=== PATIENT | male | born 1965 | race Caucasian/White ===

== ENCOUNTER 2022-01-16 22:10 | Inpatient (IN) ==
[2022-01-16 22:34] LABS: Basophils # (auto) 0.06 K/uL (0-0.2); Basophils % (auto) 0.5 %; Eosinophils # (auto) 0.19 K/uL (0-0.50); Eosinophils % (auto) 1.7 %; Hematocrit (blood only) 44.6 % (40.1-51.0); Hemoglobin 15.5 g/dl (14.0-18.0); Immature Granulocytes # (auto) 0.04 K/uL (0.00-0.02); Immature Granulocytes % (auto) 0.4 %; Lymphocytes # (auto) 2.82 K/uL (1.2-3.4); Lymphocytes % (auto) 25.8 %; Mean Corpuscular Hemoglobin 30.3 pg (25.0-34.0); Mean Corpuscular Hgb Conc 34.8 g/dL (32.0-36.0); Mean Corpuscular Volume 87.1 fL (80.0-100.0); Mean Platelet Volume 8.9 fL (9.4-12.4); Monocytes % (auto) 10.1 %; Neutrophils # (auto) 6.73 K/uL (1.4-6.5); Neutrophils % (auto) 61.5 %; Platelet Count 215 K/uL (130-400); RDW Coefficient of Variation 12.8 % (11.5-14.5); RDW Standard Deviation 40.3 fL (36.4-46.3); Red Blood Count 5.12 M/uL (4.63-6.08); White Blood Count 10.94 K/ul (4.8-10.8)
[2022-01-16 22:49] LABS: Partial Thromboplastin Ratio 1.1; Partial Thromboplastin Time 29.4 Seconds (21.0-31.0); Prothrombin Time 10.7 Seconds (9.0-12.0)
[2022-01-16 23:02] LABS: Troponin I High Sensitivity 39.4 pg/ml (0-20)
[2022-01-16] MEDS ORDERED: ASPIRIN CHEW 324 MG PO STA (23:12)
[2022-01-16 23:14] LABS: Albumin Globulin Ratio 1.4 (0.9-2); Albumin Level 4.4 gm/dl (3.4-5.0); Bilirubin,Total 0.7 mg/dl (0.2-1.0); Calcium 9.4 mg/dl (8.5-10.1); Creatinine Clr Calc Pharmacy 114.9 ml/min; Est GFR (Non-African American) 101.8 ml/min; Globulin 3.1 gm/dl (2.5-4.0); Total Protein 7.5 gm/dl (6.0-8.3)
--- NOTE | 2022-01-16 23:16 | Emergency Department Note ---
History of Present Illness General Chief complaint: Chest Pain Stated complaint: CHEST PAIN, HIGH BLOOD PRESSURE Time Seen by Provider: 01/16/22 22:44 History of Present Illness Maximum Pain Intensity: 0 56-year-old male presents emergency department with a 2-day history of intermittent chest pain. Patient states he was in [facility] at the airport he had to run to a in and he states that he developed substernal chest pressure that radiated down his left arm with associated shortness of breath. Patient states that subsequently resolved. Patient has a history of hypertension. Patient denies any cardiac history. Patient states today that his chest pain returned and radiated down his left arm. Patient denies any nausea vomiting diaphoresis neck pain jaw pain. There are no other mitigating or alleviating factors. Home Medications Medication Instructions Recorded Confirmed Type aspirin 81 mg tablet,delayed 81 mg PO DAILY 01/17/22 01/17/22 History release losartan 50 mg-hydrochlorothiazide 1 tab PO UD 01/17/22 01/17/22 History 12.5 mg tablet rosuvastatin 10 mg tablet 10 mg PO UD 01/17/22 01/17/22 History Allergies Allergy/AdvReac Type Severity Reaction Status Date / Time No Known Allergies Allergy Unknown Unverified 01/16/22 22:50 Past Med/Surg History Social History Smoking Status: Never smoker Feels Safe at Home: Yes Immunizations: Past medical history of hypertension Review of Systems A total of 10 systems reviewed and were otherwise negative Constitutional: no fever Cardiovascular: + chest pain Gastrointestinal: no abdominal pain Musculoskeletal: no back pain Physical Exam Vital Signs Vital Signs - 24 hr 01/16/22 22:11 01/16/22 23:10 01/16/22 23:30 Temperature 36.2 C L Temperature Source Temporal Artery Scan Pulse Rate 82 Pulse Rate [Right] 73 Respiratory Rate 16 18 Respiratory Effort / Characteristics Non-Labored Non-Labored Respiratory Depth Normal Normal Blood Pressure 177/77 H Blood Pressure [Right Arm] 155/73 H Blood Pressure Mean 110 Blood Pressure Mean [Right Arm] 100 Pulse Oximetry 95 94 94 Oxygen Delivery Method Room Air Room Air Room Air Sepsis Recent Fever Within 48 Hours No Sepsis New/Unexplained Change in Mental Status No Sepsis Action Taken by Nursing No Action Required VITAL SIGNS - Vital signs and nursing notes were reviewed. GENERAL - no acute distress. Communicates well with provider and answers questions appropriately. SKIN - Without rashes. HEAD - NC/AT. EYES - PERRL with EOMI bilaterally. Sclera anicteric. Palpebral conjunctiva pink and moist with no injection noted. EARS - No deformities of external structures noted on gross examination bilaterally. NOSE - Midline and without cyanosis. No epistaxis or purulent drainage noted. Septum midline without deviation or septal hematoma noted. MOUTH/OROPHARYNX - Without perioral cyanosis. Buccal mucosa pink and moist and without leukoplakia. Tongue midline with equal elevation of palate bilaterally. No tonsillar hypertrophy, erythema, or exudates noted. NECK - Neck with FROM. Supple to palpation. No lymphadenopathy noted. No nuchal rigidity. LUNGS - Chest wall symmetric without accessory muscle use, intercostals retractions, or central cyanosis. Normal vesicular breath sounds CTA B/L. No wheezes, rales, or rhonchi appreciated. CARDIAC - RRR with S1/S2. No murmur, rubs, or gallops appreciated. ABDOMEN - Abdominal contour soft without pulsations or visible masses. BS norm oactive all four quadrants. No tenderness, palpable masses, hepatosplenomegaly, or ascites noted. EXTREMITIES - No clubbing or peripheral cyanosis. No pretibial edema present. +5/5 strength noted in UE/LE bilaterally. NEUROLOGIC - Cranial nerves II through XII grossly intact. PSYCH - A&Ox3 and cooperates fully with examiner. Pt is very pleasant and interacts well with examiner. Course Reevaluation(s) Reevaluation #1: Patient is resting in no distress; there is no current chest pain. Patient was given aspirin. The case was discussed with the [facility] hospitalist for admission Time: 23:21 Administered Medications Discontinued Medications Aspirin (Aspirin Chew 324 Mg) 324 mg PO NOW STA Stop: 01/16/22 23:13 Last Admin: 01/16/22 23:25 Dose: 324 mg Documented By: BRENT Ioversol (Optiray 300 500ml) 120 ml IV ONCE ONE Stop: 01/17/22 01:26 Last Admin: 01/17/22 01:26 Dose: 120 ml Documented By: SHEILA Lisinopril (Lisinopril 5 Mg Tab) 2.5 mg PO ONE STA Stop: 01/16/22 23:31 Last Admin: 01/17/22 00:31 Dose: Not Given Documented By: BRENT Medical Decision Making Medical Records Attestation: I reviewed the patient's medical records. Home Medications Current Medication List: was personally reviewed by me Laboratory Data Attestation: I reviewed the patient's lab results. Result diagrams: 01/16/22 22:24 01/16/22 22:24 Lab Results 01/16/22 01/16/22 01/16/22 Range/Units 22:24 22:24 22:24 WBC 10.94 H (4.8-10.8) K/ul RBC 5.12 (4.63-6.08) M/uL Hgb 15.5 (14.0-18.0) g/dl Hct 44.6 (40.1-51.0) % MCV 87.1 (80.0-100.0) fL MCH 30.3 (25.0-34.0) pg MCHC 34.8 (32.0-36.0) g/dL RDW Std Deviation 40.3 (36.4-46.3) fL RDW Coeff of Nazia 12.8 (11.5-14.5) % Plt Count 215 (130-400) K/uL MPV 8.9 L (9.4-12.4) fL Immature Gran % (Auto) 0.4 % Neut % (Auto) 61.5 % Lymph % (Auto) 25.8 % [place] % (Auto) 10.1 % Eos % (Auto) 1.7 % Baso % (Auto) 0.5 % Neut # (Auto) 6.73 H (1.4-6.5) K/uL Lymph # (Auto) 2.82 (1.2-3.4) K/uL [place] # (Auto) 1.10 H (0.24-0.82) K/uL Eos # (Auto) 0.19 (0-0.50) K/uL Baso # (Auto) 0.06 (0-0.2) K/uL Immature Gran # (Auto) 0.04 H (0.00-0.02) K/uL PT 10.7 (9.0-12.0) Seconds INR 1.0 (0.9-1.1) APTT 29.4 (21.0-31.0) Seconds PTT Ratio 1.1 D-Dimer (0-500) ug/L FEU Sodium 138 (136-145) mmol/L Potassium 4.0 (3.5-5.1) mmol/L Chloride 106 (98-107) mmol/L Carbon Dioxide 23 (21-32) mmol/L Anion Gap 9 (3-11) BUN 21 (6-23) mg/dl Creatinine 0.75 (0.6-1.4) mg/dl Est Cr Clr Drug Dosing 114.9 ml/min Est GFR ( Amer) 118.0 ml/min Est GFR (Non-Af Amer) 101.8 ml/min BUN/Creatinine Ratio 28.0 H (10-20) Glucose 103 H (70-99(Fasting)) mg/dl Calcium 9.4 (8.5-10.1) mg/dl Total Bilirubin 0.7 (0.2-1.0) mg/dl AST 24 (13-39) U/L ALT 22 (7-52) U/L Alkaline Phosphatase 62 (34-104) U/L Troponin I High Sens 39.4 H (0-20) pg/ml Total Protein 7.5 (6.0-8.3) gm/dl Albumin 4.4 (3.4-5.0) gm/dl Globulin 3.1 (2.5-4.0) gm/dl Albumin/Globulin Ratio 1.4 (0.9-2) SARS-CoV-2, RNA, NAAT (NEGATIVE) 01/16/22 01/17/22 01/17/22 Range/Units 23:28 00:05 00:05 WBC (4.8-10.8) K/ul RBC (4.63-6.08) M/uL Hgb (14.0-18.0) g/dl Hct (40.1-51.0) % MCV (80.0-100.0) fL MCH (25.0-34.0) pg MCHC (32.0-36.0) g/dL RDW Std Deviation (36.4-46.3) fL RDW Coeff of Nazia (11.5-14.5) % Plt Count (130-400) K/uL MPV (9.4-12.4) fL Immature Gran % (Auto) % Neut % (Auto) % Lymph % (Auto) % [place] % (Auto) % Eos % (Auto) % Baso % (Auto) % Neut # (Auto) (1.4-6.5) K/uL Lymph # (Auto) (1.2-3.4) K/uL [place] # (Auto) (0.24-0.82) K/uL Eos # (Auto) (0-0.50) K/uL Baso # (Auto) (0-0.2) K/uL Immature Gran # (Auto) (0.00-0.02) K/uL PT (9.0-12.0) Seconds INR (0.9-1.1) APTT (21.0-31.0) Seconds PTT Ratio D-Dimer 1060 H* (0-500) ug/L FEU Sodium (136-145) mmol/L Potassium (3.5-5.1) mmol/L Chloride (98-107) mmol/L Carbon Dioxide (21-32) mmol/L Anion Gap (3-11) BUN (6-23) mg/dl Creatinine (0.6-1.4) mg/dl Est Cr Clr Drug Dosing ml/min Est GFR ( Amer) ml/min Est GFR (Non-Af Amer) ml/min BUN/Creatinine Ratio (10-20) Glucose (70-99(Fasting)) mg/dl Calcium (8.5-10.1) mg/dl Total Bilirubin (0.2-1.0) mg/dl AST (13-39) U/L ALT (7-52) U/L Alkaline Phosphatase (34-104) U/L Troponin I High Sens 40.1 H (0-20) pg/ml Total Protein (6.0-8.3) gm/dl Albumin (3.4-5.0) gm/dl Globulin (2.5-4.0) gm/dl Albumin/Globulin Ratio (0.9-2) SARS-CoV-2, RNA, NAAT NEGATIVE (NEGATIVE) Imaging Data Attestation: I personally reviewed and interpreted this imaging study as follows: Radiologist's Impression: Chest X-Ray 01/16/22 23:29 SINGLE VIEW CHEST CLINICAL HISTORY: Atypical chest pain. FINDINGS: 2 AP, portable, upright chest radiographs are obtained. No prior studies are available for comparison at the time of dictation. The heart is en larged. The pulmonary vasculature is noncongested. Nonspecific interstitial thickening is likely chronic. A calcified granuloma seen in the left upper lobe. There is bibasilar scarring/atelectasis. No airspace consolidation or large pleural effusion is identified. No pneumothorax is seen. The skeletal structures are osteopenic. The bony thorax is grossly intact. IMPRESSION: Cardiomegaly with no acute cardiopulmonary abnormality identified. ACT 112: Negative or not required by law. Electronically signed by: Valentino Deleon M.D. 01/17/2022 1:01 AM ECG Data Attestation: I personally reviewed and interpreted this ECG as follows: Additional Comments: EKG interpreted by me normal sinus rhythm rate of 74 left ventricular hyp ertrophy nonspecific ST-T change no obvious ST segment elevation or depression normal intervals normal axis MDM Narrative Medical decision making differential diagnosis includes angina unstable angina acute coronary syndrome acute RI musculoskeletal chest pain GERD. Plan is to check EKG labs chest x-ray give aspirin and admit. Impression & Plan Chest pain Discharge Plan Visit Data Chief Complaint: Chest Pain Stated Complaint: CHEST PAIN, HIGH BLOOD PRESSURE ED Provider: Gabe Neal Discharge Problem: Chest pain Patient Disposition: Being Evaluated by Hospitalist Forms Stand Alone Forms: [facility] Prescriptions Prescriptions: No Action aspirin [Aspirin Low-Strength] 81 mg Tablet,Delayed Release (Dr/Ec) 81 mg PO DAILY losartan-hydrochlorothiazide 50-12.5 mg Tablet 1 tab PO UD Rx Instructions: ordered daily....pt not taking rosuvastatin 10 mg Tablet 10 mg PO UD Rx Instructions: ordered daily...not taking Referrals Referrals: PCP,NO [Primary Care Provider] -
[2022-01-16] MEDS ORDERED: lisinopril 5 MG TAB PO STA (23:30)
[2022-01-17] MEDS ORDERED: LOSARTAN POTASSIUM 25 MG TAB PO STA ×2 (00:28→22:33)
--- NOTE | 2022-01-17 00:42 | History & Physical Report ---
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 medication noncompliance OBS PCU Resume prior low home losartan Rx and titrate accordingly Aspirin for CAD/CVA prevention Resume prior home statin Rx, update lipid profile Follow troponin IV heparin TTE, Cardiology consult Re: NSTEMI outpatient follow-up surveillance imaging for aortic enlargement and CT surgery consultation DVT prophylaxis IV heparin Full code Text document was generated using [employer] voice recognition software. It may contain grammatical or spelling errors. Kindly contact undersigned for clarification of any documentation item in q uestion. History of Present Illness Chief Complaint: Chest pain Primary Care Provider: Dr. Bright History obtained from patient and records. Medical history significant HTN, hyperlipidemia, valvular heart, DM, MS, lymphoma (bicuspid aortic valve, moderate to severe aortic insufficiency, mild MR), ascending thoracic aorta enlargement), history CVA, medication noncompliance. 3 days ago, patient noted pleuritic left-sided chest pain going to the left arm while trying to catch a plane at the [place] airport. Chest pain resolved on its own relaxation. At home last night, patient had recurrence of left-sided chest pressure with radiation to the left arm. No shortness of breath. SBP noted to be 180s at home. Patient admits to stopping home medications (ASA, Crestor, Hyzaar) a few years ago because he lost weight and felt that he did not need them anymore. Aspirin given at the ER. Patient currently comfortable. 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 Allergies Allergy/AdvReac Type Severity Reaction Status Date / Time No Known Allergies Allergy Unknown Unverified 01/16/22 22:50 Home Medications Medication Instructions Recorded Confirmed Type aspirin 81 mg tablet,delayed 81 mg PO DAILY 01/17/22 01/17/22 History release losartan 50 mg-hydrochlorothiazide 1 tab PO UD 01/17/22 01/17/22 History 12.5 mg tablet rosuvastatin 10 mg tablet 10 mg PO UD 01/17/22 01/17/22 History Past Med/Surg History Social History Smoking Status: Never smoker Second Hand Exposure: No; Do You Dip or Chew Tobacco: No; Tobacco Cessation Education Requested by Patient: No Hx Alcohol Use: No Hx Substance Use: No Preferred Language: Qatari Communication Ability: Effective Supervisor [employer] Required: No Beliefs That Will Affect Care: None Current Living Situation: Spouse Other Information That Helps Us Care for You: No Feels Safe at Home: Yes Safety Concerns: Feels Safe At This Time Assistive Devices: Glasses Review of Systems Review of Systems: As per HPI, all other systems reviewed and negative Physical Exam Physical Exam: GENERAL: Comfortable, pleasant, no respiratory distress SKIN: Normal color, warm HEENT: [place] palpebral conjunctivae, no ptosis, moist buccal mucosa NECK : Supple, no tenderness CHEST : CTA, no tenderness HEART : RRR, systolic murmur ABDOMEN: Some distention, nontender EXTREMITIES : No LE swelling/tenderness, no other conspicuous deformities noted NEUROLOGIC : Coherent, no facial asymmetry, no other gross focality Results & Data Results & Data ([facility]) Vital Signs (Past 12 Hours) Vital Signs Temp Pulse Pulse Resp BP BP Pulse Ox 01/16/22 23:30 73 18 155/73 H 94 01/16/22 23:10 94 01/16/22 22:11 36.2 C L 82 16 177/77 H 95 O2 Del Method 01/16/22 23:30 Room Air 01/16/22 23:10 Room Air 01/16/22 22:11 Room Air Laboratory Results Laboratory Results WBC 10.94 K/ul (4.8-10.8) H 01/16/22 22:24 RBC 5.12 M/uL (4.63-6.08) 01/16/22 22:24 Hgb 15.5 g/dl (14.0-18.0) 01/16/22 22:24 Hct 44.6 % (40.1-51.0) 01/16/22 22:24 MCV 87.1 fL (80.0-100.0) 01/16/22 22:24 MCH 30.3 pg (25.0-34.0) 01/16/22 22: MCHC 34.8 g/dL (32.0-36.0) 01/16/22: RDW Std Deviation 40.3 fL (36.4-46.3) 01/16/22: RDW Coeff of Nazia 12.8 % (11.5-14.5) 01/16/22 22:24 Plt Count 215 K/uL (130-400) 01/16/22 22: MPV 8.9 fL (9.4-12.4) L 01/16/22 22: Immature Gran % (Auto) 0.4 % 01/16/22 22: Neut % (Auto) 61.5 % 01/16/22: Lymph % (Auto) 25.8 % 01/16/22 22: [place] % (Auto) 10.1 % 01/16/22 22: Eos % (Auto) 1.7 % 01/16/22: Baso % (Auto) 0.5 % 01/16/22: Neut # (Auto) 6.73 K/uL (1.4-6.5) H 01/16/22 22:24 Lymph # (Auto) 2.82 K/uL (1.2-3.4) 01/16/22 22:24 [place] # (Auto) 1.10 K/uL (0.24-0.82) H 01/16/22 22:24 Eos # (Auto) 0.19 K/uL (0-0.50) 01/16/22 22:24 Baso # (Auto) 0.06 K/uL (0-0.2) 01/16/22 22: Immature Gran # (Auto) 0.04 K/uL (0.00-0.02) H 01/16/22 22:24 PT 10.7 Seconds (9.0-12.0) 01/16/22 22: INR 1.0 (0.9-1.1) 01/16/22 22:24 APTT 29.4 Seconds (21.0-31.0) 01/16/22 22:24 PTT Ratio 1.1 01/16/22 22:24 Sodium 138 mmol/L (136-145) 08/27/22 22:24 Potassium 4.0 mmol/L (3.5-5.1) 01/16/22 22:24 Chloride 106 mmol/L (98-107) 01/16/22 22:24 Carbon Dioxide 23 mmol/L (21-32) 01/16/22 22:24 Anion Gap 9 (3-11) 01/16/22 22:24 BUN 21 mg/dl (6-23) 01/16/22 22:24 Creatinine 0.75 mg/dl (0.6-1.4) 01/16/22 22:24 Est Cr Clr Drug Dosing 114.9 ml/min 01/16/22 22:24 Est GFR ( Amer) 118.0 ml/min 01/16/22 22:24 Est GFR (Non-Af Amer) 101.8 ml/min 01/16/22 22:24 BUN/Creatinine Ratio 28.0 (10-20) H 01/16/22 22:24 Glucose 103 mg/dl (70-99(Fasting)) H 01/16/22 22:24 Calcium 9.4 mg/dl (8.5-10.1) 01/16/22 22:24 Total Bilirubin 0.7 mg/dl (0.2-1.0) 01/16/22 22:24 AST 24 U/L (13-39) 01/16/22 22:24 ALT 22 U/L (7-52) 01/16/22 22:24 Alkaline Phosphatase 62 U/L (34-104) 01/16/22 22:24 Troponin I High Sens 39.4 pg/ml (0-20) H 01/16/22 22:24 Total Protein 7.5 gm/dl (6.0-8.3) 01/16/22 22:24 Albumin 4.4 gm/dl (3.4-5.0) 01/16/22 22:24 Globulin 3.1 gm/dl (2.5-4.0) 01/16/22 22:24 Albumin/Globulin Ratio 1.4 (0.9-2) 01/16/22 22:24 SARS-CoV-2, RNA, NAAT NEGATIVE (NEGATIVE) 01/16/22 23:[address] chest initial read: No pulmonaryembolus. No aortic aneurysm. Mild interseptal thickening mayrepresent atelectasis and/or pulmonaryedema. No consolidation. There is ectasia of the ascending aorta measuring 4.5 cm. The heart size iswithin normal limits. No pathologicallyenlarged lymph nodes. No fracture. EKG as per my interpretation : Rate 75, NSR, LAD, LAFB, LVH, ischemia
[2022-01-17 00:49] LABS: D Dimer 1060 ug/L FEU (0-500)
[2022-01-17] MEDS ORDERED: LORazepam 0.5 MG TAB PO PRN (00:54)
[2022-01-17] MEDS ORDERED: MoRPHine SULFATE 4 MG/ML 1 ML CARP\\VIAL IV PRN (00:54)
[2022-01-17] MEDS ORDERED: PROMETHAZINE HCL 12.5 MG in SODIUM CHLORIDE 0.9% 50 ML IV PRN (00:54)
[2022-01-17] MEDS ORDERED: traMADol HCL 50 MG TABLET PO PRN (00:54)
--- NOTE | 2022-01-17 01:02 | XRay Report ---
SINGLE VIEW CHEST CLINICAL HISTORY: Atypical chest pain. FINDINGS: 2 AP, portable, upright chest radiographs are obtained. No prior studies are available for comparison at the time of dictation. The heart is enlarged. The pulmonary vasculature is noncongested . Nonspecific interstitial thickening is likely chronic. A calcified granuloma seen in the left upper lobe. There is bibasilar scarring/atelectasis. No airspace consolidation or large pleural effusion i s identified. No pneumothorax is seen. The skeletal structures are osteopenic. The bony thorax is ava ssly intact. IMPRESSION: Cardiomegaly with no acute cardiopulmonary abnormality identified. ACT 112: Negative or not required by law. Electronically signed by: Valentino Deleon M.D. 01/17/2022 1:01 AM
[2022-01-17] MEDS ORDERED: SODIUM CHLORIDE 0.9% 1000ML 1,000 ML IV STA (01:12)
[2022-01-17] MEDS ORDERED: OPTIRAY 300 500mL IV ONE (01:25)
[2022-01-17] MEDS ORDERED: NITROGLYCERIN SL 0.4 MG/TAB TAB SL PRN (02:12)
[2022-01-17] MEDS ORDERED: Heparin IV Adult Wt-Based Standard *NO* Bolus Protocol IV ONE (03:25)
[2022-01-17] MEDS: HEPARIN SODIUM/DEXTROSE 25,000 UNITS/500 ML BAG IV SCH ×2 (04:47→23:35)
[2022-01-17 06:07] LABS: Basophils # (auto) 0.02 K/uL (0-0.2); Basophils % (auto) 0.3 %; Eosinophils # (auto) 0.26 K/uL (0-0.50); Eosinophils % (auto) 3.5 %; Hematocrit (blood only) 42.8 % (40.1-51.0); Hemoglobin 14.8 g/dl (14.0-18.0); Immature Granulocytes # (auto) 0.03 K/uL (0.00-0.02); Immature Granulocytes % (auto) 0.4 %; Lymphocytes # (auto) 2.63 K/uL (1.2-3.4); Lymphocytes % (auto) 35.8 %; Mean Corpuscular Hemoglobin 30.3 pg (25.0-34.0); Mean Corpuscular Hgb Conc 34.6 g/dL (32.0-36.0); Mean Corpuscular Volume 87.7 fL (80.0-100.0); Mean Platelet Volume 9.1 fL (9.4-12.4); Monocytes # (auto) 0.77 K/uL (0.24-0.82); Monocytes % (auto) 10.5 %; Neutrophils # (auto) 3.63 K/uL (1.4-6.5); Neutrophils % (auto) 49.5 %; Platelet Count 182 K/uL (130-400); RDW Coefficient of Variation 12.9 % (11.5-14.5); RDW Standard Deviation 41.4 fL (36.4-46.3); Red Blood Count 4.88 M/uL (4.63-6.08); White Blood Count 7.34 K/ul (4.8-10.8)
[2022-01-17 06:56] LABS: BUN Creatinine Ratio 30.2 (10-20); Calcium 8.8 mg/dl (8.5-10.1); Chol HDL Ratio 6.1 (0-5); Est GFR (African American) 126.8 ml/min; Est GFR (Non-African American) 109.4 ml/min; Potassium 3.7 mmol/L (3.5-5.1)
[2022-01-17] MEDS: ROSUVASTATIN CALCIUM 10 MG TAB PO SCH (08:39)
[2022-01-17] MEDS: ASPIRIN 81 MG ECTAB PO SCH (08:39)
--- NOTE | 2022-01-17 08:53 | CT Scan Report ---
CT ANGIOGRAPHY OF THE CHEST, PULMONARY EMBOLUS PROTOCOL CLINICAL HISTORY: Atypical chest pain. COMPARISON STUDY: Chest radiograph January 16, 2022. TECHNIQUE: Following IV administration of 120 mL of Optiray, helical axial images of the chest were o btained utilizing the pulmonary embolus protocol. Maximal intensity projections and sagittal and cor onal reformats were viewed on an independent 3D workstation. IV contrast was administered without co mplication. Automated exposure control was utilized for the study. A dose lowering technique was ut ilized adhering to the principles of ALARA. CT DOSE: 595.38 mGy.cm FINDINGS: No pulmonary emboli are identified. Moderate cardiomegaly is noted. There is also moderate coronary artery calcification. No pericardial effusion is noted. Ascending aorta is dilated, measuri ng 4.4 cm in caliber. No pneumothorax or pleural effusion is present. There is a calcified granuloma within the left upper lobe. Mild interlobular septal thickening is present. Subpleural ground glass o pacities reflect atelectasis. No consolidation to suggest pneumonia. There is no thoracic lymphadenop athy. IMPRESSION: 1. No pulmonary emboli identified. 2. Moderate cardiomegaly and coronary artery calcification. No pericardial effusion. 3. Dilated ascending aorta, measuring 4.4 cm. 4. Interlobular septal thickening. This favors mild interstitial edema. ACT 112: Negative or not required by law. Electronically signed by: Gene Styles M.D. 01/17/2022 8:51 AM
--- NOTE | 2022-01-17 11:31 | Cardiology Consultation ---
Date of Consultation January 17, 2022 Assessment & Plan (1) Hypertensive urgency: (2) History of CVA (cerebrovascular accident): (3) Aortic insufficiency due to bicuspid aortic valve: (4) Dyslipidemia: (5) Noncompliance: Plan Hypertensive urgency in the setting of medication noncompliance. BP is now well controlled with restarting low-dose losartan. 2D echocardiogram shows mildly reduced LV systolic function with mild global hypokinesis. 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 I suspect his mild hypokinesis is due to longstanding uncontrolled hypertension and aortic insufficiency. He will require further ischemic work-up as an outpatient. Patient will also need to be evaluated for cardiothoracic surgery referral for aortic valve replacement and aortic repair. Continue to monitor on telemetry for now. History of Present Illness Reason for Consultation: uncontrolled hypertension Requesting Physician: TAWNY Attending Physician: Scar Rincon MD History of Present Illness The patient is a 56-year-old male who has not had medical care in a number of years. He presented to [facility] on 01/16/2022 with complaints of fatigue and chest pain. He states that he was hurrying to catch a plane when he noticed some left-sided chest pain that radiated up into his arm. He described the pain as sharp and stabbing in nature and was worse with deep inhalation. The pain then reoccurred later on that evening at home while at rest. He checked his home blood pressure which was in the 180 mmHg systolic range and came into the ER. The patient has been noncompliant with his medication regiment has not followed up with cardiology in over 4 years. Allergies Allergy/AdvReac Type Severity Reaction Status Date / Time No Known Allergies Allergy Unknown Unverified 01/16/22 22:50 Home Medications Medication Instructions Recorded Confirmed Type aspirin 81 mg tablet,delayed 81 mg PO DAILY 01/17/22 01/17/22 History release losartan 50 mg-hydrochlorothiazide 1 tab PO UD 01/17/22 01/17/22 History 12.5 mg tablet rosuvastatin 10 mg tablet 10 mg PO UD 01/17/22 01/17/22 History Patient History Social History Smoking Status: Never smoker Second Hand Exposure: No; Do You Dip or Chew Tobacco: No; Tobacco Cessation Education Requested by Patient: No Hx Alcohol Use: No Hx Substance Use: No Preferred Language: Citizen Of [place] Communication Ability: Effective Point Of Care Specialist Required: No Beliefs That Will Affect Care: None Current Living Situation: Spouse Other Information That Helps Us Care for You: No Feels Safe at Home: Yes Safety Concerns: Feels Safe At This Time Assistive Devices: Glasses Review of Systems Review of Systems: All systems reviewed & are unremarkable except as noted in HPI & below Physical Exam Physical Exam: General: Awake, alert and oriented x 3. No acute distress. HEENT: Normocephalic, atraumatic. Pupils equal, round and reactive to light and accommodation. Extraocular muscles are intact. Anicteric sclera. Moist mucous membranes. Neck: No JVD. No bruit. Cardiovascular: Regular. Positive S-4. Normal S-1 and S-2. No S-3. 3/6 holosystolic ejection murmur, left sternal border, mid-clavicular line with radi ation to the axilla. No rubs. Pulmonary: Clear to auscultation bilaterally. No rales, rhonchi, or wheezing. Abdomen: Bowel sounds x 4, soft. No rebound, guarding or tenderness. No organomegaly. Extremities: No clubbing, cyanosis or edema. +2 pedal pulses bilaterally. Skin: Warm and dry. Results & Data ([facility]) Vital Signs (Past 12 Hours) Vital Signs Temp Pulse Pulse Resp BP Pulse Ox O2 Del Method 01/17/22 11:02 36.9 C 75 17 126/64 93 Room Air 01/17/22 07:19 37.1 C 70 18 132/61 94 Room Air 01/17/22 03:50 36.4 C L 68 16 134/68 94 Room Air 01/17/22 02:39 63 01/17/22 02:20 Room Air 01/17/22 02:12 36.8 C 66 18 144/73 H 97 Room Air 01/17/22 01:41 Room Air 01/17/22 01:37 66 20 136/74 94 Room Air 01/16/22 23:30 73 18 155/73 H 94 Room Air Diagnostic Findings Echo from 2018 Interpretation Summary The examination is adequate to evaluate the referral indication. The left ventricular cavity size is mildly enlarged. The LV wall thickness is moderately increased (concentric). The left ventricular wall motion is normal. Calculated LV ejection Fraction = 60% (bi-plane method of discs). The left ventricular diastolic function is mildly abnormal (grade I). The left coronary cusp of the aortic valve is relatively small and mildly calcified. Excursion of the left coronary cusp is mildly diminished. Aortic stenosis is absent. There is [id number] aortic valvular insufficiency. The aortic insufficiency jet impinges upon the anterior mitral valve leaflet. Brief diastolic flow reversal in the proximal descending thoracic aorta is noted on pulsed-wave Doppler. Diastolic excursion of the anterior mitral valve leaflet is diminished, likely secondary to aortic valvular insufficiency jet which crosses the left ventricular inflow tract. The anterior mitral valve leaflet is mildly sclerotic. Mild mitral regurgitation is present. The aortic root is moderately enlarged. Aortic root dimension is 4.6 cm. The proximal ascending thoracic aorta is mildly enlarged. Asecnding aorta dimension is 4.1 cm.
[2022-01-17 12:05] LABS: Partial Thromboplastin Ratio 1.7
[2022-01-17 12:15] LABS: Partial Thromboplastin Time 46.7 Seconds (21.0-31.0)
--- NOTE | 2022-01-17 14:45 | Hospitalist Progress Note ---
Date of Service January 17, 2022 Assessment & Plan (1) Hypertensive urgency: (2) Chest pain: (3) Aortic regurgitation: (4) History of CVA (cerebrovascular accident): (5) Noncompliance: Plan 56 year old male with h/o HTN, mod-sev AR, h/o CVA who presented to the ED with chest pain and hypertensive urgency. States he stopped his antihypertensive meds after he lost significant weight. Echo- EF 50-55%, borderline global hypokinesia, grade 1 diastolic dysfunction, mod-sev AR CTA chest- 1. No pulmonary emboli identified. 2. Moderate cardiomegaly and coronary artery calcification. No pericardial effusion. 3. Dilated ascending aorta, measuring 4.4 cm. 4. Interlobular septal thickening. This favors mild interstitial edema. Hypertensive urgency- due to medication non compliance. SBP 180s on admission, BP currently controlled with resuming losartan, will continue for now. Uptitrate if needed Chest pain with mildly elevated trop- currently chest pain free. Trop mildly elevated but trending down. Echo reviewed. Seen by cardio- recommended OP ischemic work up Valvular heart disease (mod-sev AR) with severe aortic root enlargement at 5.1 cm and mod-sev ascending aortic enlargement at 4.8 cm- F/u with cardiothoracic surgery as OP for aortic valve replacement and aortic repair H/o CVA 2011- continue ASA, statin Dispo- PCU on tele Updated at bedside Admission and Anticipated Discharge Date Admission Date: January 17, 2022 Subjective He feels better. No more chest pain since admission. No dyspnea, dizziness, palpitations. No N/V. Asking if he can go home. Physical Exam Physical Exam: General: Lying comfortably in bed, not in distress, on room air HEENT: EOMI, PERRL, MMM Chest: Clear breath sounds bilaterally, no wheezes or crackles CVS: Regular rate and rhythm, normal heart sounds, no murmur Abdomen: Soft, non tender, not distended, normal bowel sounds Neuro: Awake, alert, oriented, conversing well, non focal Extremities: No edema Results & Data Results & Data ([facility]) Vital Signs (Past 12 Hours) Vital Signs Temp Pulse Resp BP Pulse Ox O2 Del Method 01/17/22 11:02 36.9 C 75 17 126/64 93 Room Air 01/17/22 07:19 37.1 C 70 18 132/61 94 Room Air 01/17/22 03:50 36.4 C L 68 16 134/68 94 Room Air Laboratory Results Short CBC 01/16/22 01/17/22 Range/Units 22:24 05:37 WBC 10.94 H 7.34 (4.8-10.8) K/ul Hgb 15.5 14.8 (14.0-18.0) g/dl Hct 44.6 42.8 (40.1-51.0) % Plt Count 215 182 (130-400) K/uL BMP 01/16/22 01/17/22 22:24 05:37 Sodium 138 136 Potassium 4.0 3.7 Chloride 106 107 Carbon Dioxide 23 23 BUN 21 19 Creatinine 0.75 0.63 Glucose 103 H 87 Calcium 9.4 8.8 Liver Function 01/16/22 Range/Units 22:24 Total Bilirubin 0.7 (0.2-1.0) mg/dl AST 24 (13-39) U/L ALT 22 (7-52) U/L Alkaline Phosphatase 62 (34-104) U/L Albumin 4.4 (3.4-5.0) gm/dl Diagnostic Findings Chest CTA 01/17/22 00:50 CT ANGIOGRAPHY OF THE CHEST, PULMONARY EMBOLUS PROTOCOL CLINICAL HISTORY: Atypical chest pain. COMPARISON STUDY: Chest radiograph January 16, 2022. TECHNIQUE: Following IV administration of 120 mL of Optiray, helical axial images of the chest were obtained utilizing the pulmonary embolus protocol. Maximal intensity projections and sagittal and coronal reformats were viewed on an independent 3D workstation. IV contrast was administered without complication. Automated exposure control was utilized for the study. A dose lo wering technique was utilized adhering to the principles of ALARA. CT DOSE: 595.38 mGy.cm FINDINGS: No pulmonary emboli are identified. Moderate cardiomegaly is noted. There is also moderate coronary artery calcification. No pericardial effusion is noted. Ascending aorta is dilated, measuring 4.4 cm in caliber. No pneumothorax or pleural effusion is present. There is a calcified granuloma within the left upper lobe. Mild interlobular septal thickening is present. Subpleural ground glass opacities reflect atelectasis. No consolidation to suggest pneumonia. There is no thoracic lymphadenopathy. IMPRESSION: 1. No pulmonary emboli identified. 2. Moderate cardiomegaly and coronary artery calcification. No pericardial effusion. 3. Dilated ascending aorta, measuring 4.4 cm. 4. Interlobular septal thickening. This favors mild interstitial edema. ACT 112: Negative or not required by law. Electronically signed by: Gene Styles M.D. 01/17/2022 8:51 AM Medications Administered Current Inpatient Medications Acetaminophen (Acetaminophen 325 Mg Tab) 650 mg PO Q4H PRN PRN Reason: Pain or Fever Stop: 02/16/22 02:11 Aspirin (Aspirin 81 Mg Ectab) 81 mg PO DAILY [facility] Stop: 02/16/22 08:59 Last Admin: 01/17/22 08:39 Dose: 81 mg Sodium Chloride (Nss 1000ml) 1,000 mls @ 40 mls/hr IV .Q24H STA Stop: 01/18/22 01:11 Last Admin: 01/17/22 02:29 Dose: 40 mls/hr Promethazine HCl 12.5 mg/ (Sodium Chloride) 50.5 mls @ 202 mls/hr IV Q6H PRN PRN Reason: Nausea And Vomiting Stop: 02/16/22 00:53 Heparin Sodium/Dextrose (Heparin Sodium/Dextrose) 25,000 units in 500 mls @ 27 mls/hr IV .[id number] [facility]; Protocol Stop: 02/16/22 03:44 Last Titration: 01/17/22 07:10 Dose: 1,350 units/hr, 27 mls/hr Lorazepam (Lorazepam 0.5 Mg Tab) 0.5 mg PO TID PRN PRN Reason: Anxiety Stop: 02/16/22 00:53 Losartan Potassium (Losartan Potassium 25 Mg Tab) 25 mg PO QAM [facility] Stop: 02/17/22 08:59 Morphine Sulfate (Morphine Sulfate 4 Mg/Ml 1 Ml Carp\Vial) 4 mg IV Q4H PRN PRN Reason: Pain Stop: 01/31/22 00:53 Nitroglycerin (Nitroglycerin Sl 0.4 Mg/Tab Tab) 0.4 mg SL UD PRN PRN Reason: Chest Pain Stop: 02/16/22 02:11 Rosuvastatin Calcium (Rosuvastatin Calcium 10 Mg Tab) 10 mg PO DAILY [facility] Stop: 02/16/22 08:59 Last Admin: 01/17/22 08:39 Dose: 10 mg Tramadol HCl (Tramadol Hcl 50 Mg Tablet) 25 - 50 mg PO Q4H PRN PRN Reason: Pain Stop: 02/16/22 00:53
[2022-01-17] MEDS: ACETAMINOPHEN 325 MG TAB PO PRN (19:26)
--- NOTE | 2022-01-17 20:32 | Electrocardiogram Report ---
Test Reason : Blood Pressure : / mmHG Vent. Rate : 074 BPM Atrial Rate : 074 BPM P-R Int : 170 ms QRS Dur : 096 ms QT Int : 404 ms P-R-T Axes : 014 -05 037 degrees QTc Int : 448 ms Normal sinus rhythm Left ventricular hypertrophy with repolarization abnormality Abnormal ECG When compared with ECG of 28-MAY-2011 17:07, Nonspecific T wave abnormality has replaced inverted T waves in Inferior leads Confirmed by Elia Tran ([id number]) on 01/17/2022 8:31:43 PM Referred By: REFERRED SELF Confirmed By:Elia Tran
--- NOTE | 2022-01-17 20:37 | Electrocardiogram Report ---
Test Reason : Blood Pressure : / mmHG Vent. Rate : 061 BPM Atrial Rate : 061 BPM P-R Int : 194 ms QRS Dur : 102 ms QT Int : 506 ms P-R-T Axes : 029 -04 -22 degrees QTc Int : 509 ms Normal sinus rhythm Left ventricular hypertrophy with repolarization abnormality Prolonged QT Abnormal ECG When compared with ECG of 16-JAN-2022 22:19, (unconfirmed) Inverted T waves have replaced nonspecific T wave abnormality in Inferior leads Nonspecific T wave abnormality, improved in Lateral leads QT has lengthened Confirmed by Elia Tran ([id number]) on 01/17/2022 8:36:57 PM Referred By: REFERRED SELF Confirmed By:Elia Tran
[2022-01-18 06:29] LABS: Hematocrit (blood only) 46.3 % (40.1-51.0); Hemoglobin 16.4 g/dl (14.0-18.0); Mean Corpuscular Hemoglobin 30.2 pg (25.0-34.0); Mean Corpuscular Hgb Conc 35.4 g/dL (32.0-36.0); Mean Corpuscular Volume 85.3 fL (80.0-100.0); Mean Platelet Volume 9.3 fL (9.4-12.4); Platelet Count 185 K/uL (130-400); RDW Coefficient of Variation 12.7 % (11.5-14.5); RDW Standard Deviation 39.4 fL (36.4-46.3); Red Blood Count 5.43 M/uL (4.63-6.08); White Blood Count 9.48 K/ul (4.8-10.8)
[2022-01-18 06:59] LABS: Calcium 8.8 mg/dl (8.5-10.1); Creatinine Clr Calc Pharmacy 137.8 ml/min; Est GFR (African American) 127.6 ml/min; Est GFR (Non-African American) 110.1 ml/min; Magnesium 1.8 mg/dl (1.7-2.4); Potassium 3.6 mmol/L (3.5-5.1); Troponin I High Sensitivity 22.5 pg/ml (0-20)
[2022-01-18 07:06] LABS: Partial Thromboplastin Ratio 1.9; Partial Thromboplastin Time 53.2 Seconds (21.0-31.0)
[2022-01-18] MEDS: ROSUVASTATIN CALCIUM 10 MG TAB PO SCH (08:45)
[2022-01-18] MEDS: ACETAMINOPHEN 325 MG TAB PO PRN (08:45)
[2022-01-18] MEDS: ASPIRIN 81 MG ECTAB PO SCH (08:45)
[2022-01-18] MEDS ORDERED: LOSARTAN POTASSIUM 25 MG TAB PO SCH (09:00)
[2022-01-18] MEDS ORDERED: METOPROLOL SUCC 25MG EXT REL TAB PO SCH (09:00)
--- NOTE | 2022-01-18 10:30 | XRay Report ---
XR chest 1V portable CLINICAL HISTORY: fever, r/o PNA COMPARISON STUDY: Chest radiograph January 16, 2022. Chest CT January 17, 2022. FINDINGS: Calcified granuloma within the left upper lobe is incidentally noted. There is no pneumotho rax or pleural effusion. No consolidation to suggest pneumonia. Dilatation of the ascending aorta is again noted. This is better depicted on chest CT. There is cardiomegaly. There is mild pulmonary devan a. IMPRESSION: 1. No consolidation to suggest pneumonia. 2. No change in mild pulmonary edema. 3. Cardiomegaly. ACT 112: Negative or not required by law. Electronically signed by: Gene Styles M.D. 01/18/2022 10:28 AM
[2022-01-18] MEDS ORDERED: cefTRIAXone SODIUM 2,000 MG in DEXTROSE 5% 50 ML IV SCH (11:00)
[2022-01-18 11:34] LABS: Appearance Urine Clear (Clear); Bilirubin Urine Negative (Negative); Blood Urine Negative (Negative); Color Urine Yellow; Glucose Urine UA Negative (Negative); Ketones Urine Negative (Negative); Leukocyte Esterase Urine Negative (Negative); Nitrite Urine Negative (Negative); Protein Urine Negative (Negative); Specific Gravity Urine 1.008 (1.000-1.030); Urobilinogen Urine Negative (Negative)
--- NOTE | 2022-01-18 11:37 | Cardiology Progress Note ---
Date of Service January 18, 2022 Assessment & Plan (1) Hypertensive urgency: (2) History of CVA (cerebrovascular accident): (3) Aortic insufficiency due to bicuspid aortic valve: (4) Dyslipidemia: (5) Noncompliance: Plan Hypertensive urgency in the setting of medication noncompliance. BP is now well controlled with restarting low-dose losartan. 2D echocardiogram shows mildly reduced LV systolic function with mild global hypokinesis. 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 I suspect his mild hypokinesis is due to longstanding uncontrolled hypertension and aortic insufficiency. He will require further ischemic work-up as an outpatient. Patient will also need to be evaluated for cardiothoracic surgery referral for aortic valve replacement and aortic repair. I started him on low-dose evidence-based beta-ned this morning and should be continued upon discharge along with his losartan. My office will call to arrange outpatient follow-up including stress testing. Should follow-up with cardiology in the next 2 to 4 weeks Need for adherence to medications and medical follow-up reiterated with the patient and his . Okay to discharge to home from a cardiac standpoint. Admission and Anticipated Discharge Date Admission Date: January 18, 2022 Subjective Patient seen and examined. Chart reviewed. Telemetry reviewed. at bedside. States he feels well today and denies any cardiovascular complaints. Review of Systems Review of Systems: All systems reviewed & are unremarkable except as noted in HPI & below Physical Exam Physical Exam: General: Awake, alert and oriented x 3. No acute distress. HEENT: Normocephalic, atraumatic. Pupils equal, round and reactive to light and accommodation. Extraocular muscles are intact. Anicteric sclera. Moist mucous membranes. Neck: No JVD. No bruit. Cardiovascular: Regular. Positive S-4. Normal S-1 and S-2. No S-3. 3/6 holosystolic ejection murmur, left sternal border, mid-clavicular line with radiation to the axilla. No rubs. Pulmonary: Clear to auscultation bilaterally. No rales, rhonchi, or wheezing. Abdomen: Bowel sounds x 4, soft. No rebound, guarding or tenderness. No organomegaly. Extremities: No clubbing, cyanosis or edema. +2 pedal pulses bilaterally. Skin: Warm and dry. Results & Data ([facility]) Vital Signs (Past 12 Hours) Vital Signs Temp Pulse Pulse Resp BP Pulse Ox O2 Del Method 01/18/22 11:27 36.5 C 69 18 127/65 92 Room Air 01/18/22 10:26 37.5 C 01/18/22 08:00 95 H 01/18/22 08:01 37.9 C H 92 H 18 142/68 H 93 Room Air 01/18/22 03:41 37.7 C H 92 H 18 163/71 H 91 Room Air 01/18/22 00:37 90
--- NOTE | 2022-01-18 12:21 | Hospitalist Progress Note ---
Date of Service January 18, 2022 Assessment & Plan (1) Fever: (2) Hypertensive urgency: (3) Valvular heart disease: Plan 56 year old male with h/o HTN, mod-sev AR, h/o CVA who presented to the ED with chest pain and hypertensive urgency. States he stopped his antihypertensive meds after he lost significant weight. Echo- EF 50-55%, borderline global hypokinesia, grade 1 diastolic dysfunction, mod-sev AR CTA chest- 1. No pulmonary emboli identified. 2. Moderate cardiomegaly and coronary artery calcification. No pericardial effusion. 3. Dilated ascending aorta, measuring 4.4 cm. 4. Interlobular septal thickening. This favors mild interstitial edema. Fever- unclear source. Tmax of 38.6 C with chills and sweats. CXR clear, WBC normal, procal and lactate negative, CRP elevated. Blood clx sent, UA unremarkable, COVID/Flu pending. Started on empiric rocephin pending blood clx results. Hypertensive urgency- due to medication non compliance. SBP 180s on admission, BP currently controlled with resuming losartan, metoprolol. Continue at discharge per cardio Chest pain with mildly elevated trop- currently chest pain free. Trop mildly elevated but already trended down. Doubt NSTEMI, likely demand ischemia from uncontrolled HTN. Echo reviewed. Seen by cardio- recommended OP ischemic work up. Cardio will schedule OP stress testing. Valvular heart disease (mod-sev AR) with severe aortic root enlargement at 5.1 cm and mod-sev ascending aortic enlargement at 4.8 cm- F/u with cardiothoracic surgery as OP for aortic valve replacement and aortic repair H/o CVA 2011- continue ASA, statin DVT ppx- sc lovenox Dispo- Pending fever work up. Updated at bedside Admission and Anticipated Discharge Date Admission Date: January 18, 2022 Subjective He has been having intermittent fever with sweats since last evening. No chest pain, SOB, N/V/abd pain, diarrhea, dysuria, rash, cough. No tick bites. No other issues. Physical Exam Physical Exam: General: Sitting comfortably in bed, not in distress, on room air HEENT: EOMI, PERRL, MMM Chest: Clear breath sounds bilaterally, no wheezes or crackles CVS: Regular rate and rhythm, normal heart sounds, no murmur Abdomen: Soft, non tender, not distended, normal bowel sounds Neuro: Awake, alert, oriented, conversing well, non focal No CVA tenderness Extremities: No edema Skin: No skin rash Results & Data Results & Data ([facility]) Vital Signs (Past 12 Hours) Vital Signs Temp Pulse Pulse Resp BP Pulse Ox O2 Del Method 01/18/22 11:27 36.5 C 69 18 127/65 92 Room Air 01/18/22 10:26 37.5 C 01/18/22 08:00 95 H 01/18/22 08:01 37.9 C H 92 H 18 142/68 H 93 Room Air 01/18/22 03:41 37.7 C H 92 H 18 163/71 H 91 Room Air 01/18/22 00:37 90 Laboratory Results Short CBC 01/18/22 Range/Units 05:30 WBC 9.48 (4.8-10.8) K/ul Hgb 16.4 (14.0-18.0) g/dl Hct 46.3 (40.1-51.0) % Plt Count 185 (130-400) K/uL BMP 01/18/22 05:30 Sodium 134 L Potassium 3.6 Chloride 101 Carbon Dioxide 22 BUN 13 Creatinine 0.62 Glucose 98 Calcium 8.8 Urine 01/18/22 Range/Units Unknown Urine Color Yellow Urine Appearance Clear (Clear) Urine pH 6.0 (4.5-7.5) Ur Specific [place] 1.008 (1.000-1.030) Urine Protein Negative (Negative) Urine Glucose (UA) Negative (Negative) Medications Administered Current Inpatient Medications Acetaminophen (Acetaminophen 325 Mg Tab) 650 mg PO Q4H PRN PRN Reason: Pain or Fever Stop: 02/16/22 02:11 Last Admin: 01/18/22 08:45 Dose: 650 mg Aspirin (Aspirin 81 Mg Ectab) 81 mg PO DAILY [facility] Stop: 02/16/22 08:59 Last Admin: 01/18/22 08:45 Dose: 81 mg Promethazine HCl 12.5 mg/ (Sodium Chloride) 50.5 mls @ 202 mls/hr IV Q6H PRN PRN Reason: Nausea And Vomiting Stop: 02/16/22 00:53 Ceftriaxone Sodium 2,000 mg/ (Dextrose) 70 mls @ 100 mls/hr IV DAILY [facility]; Protocol Stop: 01/20/22 10:59 Last Admin: 01/18/22 11:54 Dose: 100 mls/hr Lorazepam (Lorazepam 0.5 Mg Tab) 0.5 mg PO TID PRN PRN Reason: Anxiety Stop: 02/16/22 00:53 Metoprolol Succinate (Metoprolol Succ 25mg Ext Rel Tab) 25 mg PO QAM [facility] Stop: 02/17/22 08:59 Last Admin: 01/18/22 10:26 Dose: 25 mg Morphine Sulfate (Morphine Sulfate 4 Mg/Ml 1 Ml Carp\Vial) 4 mg IV Q4H PRN PRN Reason: Pain Stop: 01/31/22 00:53 Nitroglycerin (Nitroglycerin Sl 0.4 Mg/Tab Tab) 0.4 mg SL UD PRN PRN Reason: Chest Pain Stop: 02/16/22 02:11 Rosuvastatin Calcium (Rosuvastatin Calcium 10 Mg Tab) 10 mg PO DAILY [facility] Stop: 02/16/22 08:59 Last Admin: 01/18/22 08:45 Dose: 10 mg Tramadol HCl (Tramadol Hcl 50 Mg Tablet) 25 - 50 mg PO Q4H PRN PRN Reason: Pain Stop: 02/16/22 00:53
[2022-01-18 12:55] LABS: Influenza A virus by PCR Negative (Neg); Influenza B virus by PCR Negative (Neg); RSV by PCR Negative (Neg)
[2022-01-18 13:40] LABS: SARS CoV2 RNA(COVID-19) InHosp POSITIVE (Negative)
--- NOTE | 2022-01-18 17:38 | Discharge Summary ---
Date of Service January 18, 2022 Admission HPI Per Admitting Provider History obtained from patient and records. Medical history significant HTN, hyperlipidemia, valvular heart, DM, MS, lymphoma (bicuspid aortic valve, moderate to severe aortic insufficiency, mild MR), ascending thoracic aorta enlargement), history CVA, medication noncompliance. 3 days ago, patient noted pleuritic left-sided chest pain going to the left arm while trying to catch a plane at the [place] airport. Chest pain resolved on its own relaxation. At home last night, patient had recurrence of left-sided chest pressure with radiation to the left arm. No shortness of breath. SBP noted to be 180s at home. Patient admits to stopping home medications (ASA, Crestor, Hyzaar) a few years ago because he lost weight and felt that he did not need them anymore. Aspirin given at the ER. Patient currently comfortable. 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 Admission Exam Per Admitting Provider GENERAL: Comfortable, pleasant, no respiratory distress SKIN: Normal color, warm HEENT: [place] palpebral conjunctivae, no ptosis, moist buccal mucosa NECK : Supple, no tenderness CHEST : CTA, no tenderness HEART : RRR, systolic murmur ABDOMEN: Some distention, nontender EXTREMITIES : No LE swelling/tenderness, no other conspicuous deformities noted NEUROLOGIC : Coherent, no facial asymmetry, no other gross focality Principal Diagnosis Hypertensive urgency, COVID 19 infection Discharge Exam General: Sitting comfortably in bed, not in distress, on room air HEENT: EOMI, PERRL, MMM Chest: Clear breath sounds bilaterally, no wheezes or crackles CVS: Regular rate and rhythm, normal heart sounds, no murmur Abdomen: Soft, non tender, not distended, normal bowel sounds Neuro: Awake, alert, oriented, conversing well, non focal No CVA tenderness Extremities: No edema Skin: No skin rash Discharge Data Allergies Allergy/AdvReac Type Severity Reaction Status Date / Time No Known Allergies Allergy Unknown Unverified 01/16/22 22:50 Consultations 01/16/22 23:20 ED Decision to Admit Stat 01/17/22 03:26 Consult Cardiology Routine Ordered Studies 01/17/22 00:50 CT angio chest PE protocol Urgent Laboratory Results WBC 9.48 K/ul (4.8-10.8) 01/18/22 05:30 RBC 5.43 M/uL (4.63-6.08) 01/18/22 05:30 Hgb 16.4 g/dl (14.0-18.0) 01/18/22 05:30 Hct 46.3 % (40.1-51.0) 01/18/22 05:30 MCV 85.3 fL (80.0-100.0) 01/18/22 05:30 MCH 30.2 pg (25.0-34.0) 01/18/22 05:30 MCHC 35.4 g/dL (32.0-36.0) 01/18/22 05:30 RDW Std Deviation 39.4 fL (36.4-46.3) 01/18/22 05:30 RDW Coeff of Nazia 12.7 % (11.5-14.5) 01/18/22 05:30 Plt Count 185 K/uL (130-400) 01/18/22 05:30 MPV 9.3 fL (9.4-12.4) L 01/18/22 05:30 Immature Gran % (Auto) 0.4 % 01/17/22 05:37 Neut % (Auto) 49.5 % 01/17/22 05:37 Lymph % (Auto) 35.8 % 01/17/22 05:37 [place] % (Auto) 10.5 % 01/17/22 05:37 Eos % (Auto) 3.5 % 01/17/22 05:37 Baso % (Auto) 0.3 % 01/17/22 05:37 Neut # (Auto) 3.63 K/uL (1.4-6.5) 01/17/22 05:37 Lymph # (Auto) 2.63 K/uL (1.2-3.4) 01/17/22 05:37 [place] # (Auto) 0.77 K/uL (0.24-0.82) 01/17/22 05:37 Eos # (Auto) 0.26 K/uL (0-0.50) 01/17/22 05:37 Baso # (Auto) 0.02 K/uL (0-0.2) 01/17/22 05:37 Immature Gran # (Auto) 0.03 K/uL (0.00-0.02) H 01/17/22 05:37 PT 10.7 Seconds (9.0-12.0) 01/16/22 22:24 INR 1.0 (0.9-1.1) 01/16/22 22:24 APTT 53.2 Seconds (21.0-31.0) H* 01/18/22 05:30 PTT Ratio 1.9 01/18/22 05:30 D-Dimer 1060 ug/L FEU (0-500) H* 01/17/22 00:05 Sodium 134 mmol/L (136-145) L 01/18/22 05:30 Potassium 3.6 mmol/L (3.5-5.1) 01/18/22 05:30 Chloride 101 mmol/L (98-107) 01/18/22 05:30 Carbon Dioxide 22 mmol/L (21-32) 01/18/22 05:30 Anion Gap 11 (3-11) 01/18/22 05:30 BUN 13 mg/dl (6-23) 01/18/22 05:30 Creatinine 0.62 mg/dl (0.6-1.4) 01/18/22 05:30 Est Cr Clr Drug Dosing 137.8 ml/min 01/18/22 05:30 Est GFR ( Amer) 127.6 ml/min 01/18/22 05:30 Est GFR (Non-Af Amer) 110.1 ml/min 01/18/22 05:30 BUN/Creatinine Ratio 21.0 (10-20) H 01/18/22 05:30 Glucose 98 mg/dl (70-99(Fasting)) 01/18/22 05:30 Lactate 1.1 mmol/L (0.4-2.0) 01/18/22 08:34 Calcium 8.8 mg/dl (8.5-10.1) 01/18/22 05:30 Magnesium 1.8 mg/dl (1.7-2.4) 01/18/22 05:30 Total Bilirubin 0.7 mg/dl (0.2-1.0) 01/16/22 22:24 AST 24 U/L (13-39) 01/16/22 22:24 ALT 22 U/L (7-52) 01/16/22 22:24 Alkaline Phosphatase 62 U/L (34-104) 01/16/22 22:24 Troponin I High Sens 22.5 pg/ml (0-20) H 01/18/22 05:30 C-Reactive Protein 1.81 mg/dl (0-0.5) H 01/18/22 08:34 Total Protein 7.5 gm/dl (6.0-8.3) 01/16/22 22:24 Albumin 4.4 gm/dl (3.4-5.0) 01/16/22 22:24 Globulin 3.1 gm/dl (2.5-4.0) 01/16/22 22:24 Albumin/Globulin Ratio 1.4 (0.9-2) 01/16/22 22:24 Triglycerides 88 mg/dl (0-150) 01/17/22 05:37 Cholesterol 196 mg/dl (0-200) 01/17/22 05:37 LDL Cholesterol, Calc 146 mg/dl 01/17/22 05:37 VLDL Cholesterol, Calc 18 mg/dl (0-30) 01/17/22 05:37 HDL Cholesterol 32 mg/dl 01/17/22 05:37 Cholesterol/HDL Ratio 6.1 (0-5) H 01/17/22 05:37 Procalcitonin < 0.05 ng/ml (0-0.5) 01/18/22 08:34 Urine Color Yellow 01/18/22 Unknown Urine Appearance Clear (Clear) 01/18/22 Unknown Urine pH 6.0 (4.5-7.5) 01/18/22 Unknown Ur Specific [place] 1.008 (1.000-1.030) 01/18/22 Unknown Urine Protein Negative (Negative) 01/18/22 Unknown Urine Glucose (UA) Negative (Negative) 01/18/22 Unknown Urine Ketones Negative (Negative) 01/18/22 Unknown Urine Blood Negative (Negative) 01/18/22 Unknown Urine Nitrite Negative (Negative) 01/18/22 Unknown Urine Bilirubin Negative (Negative) 01/18/22 Unknown Urine Urobilinogen Negative (Negative) 01/18/22 Unknown Ur Leukocyte Esterase Negative (Negative) 01/18/22 Unknown SARS-CoV-2 (PCR) POSITIVE (Negative) A* 01/18/22 12:07 Influenza Type A (PCR) Negative (Neg) 01/18/22 12:07 Influenza Type B (PCR) Negative (Neg) 01/18/22 12:07 RSV (RT-PCR) Negative (Neg) 01/18/22 12:07 SARS-CoV-2, RNA, NAAT NEGATIVE (NEGATIVE) 01/16/22 23:28 Impressions Chest CTA 01/17/22 00:50 CT ANGIOGRAPHY OF THE CHEST, PULMONARY EMBOLUS PROTOCOL CLINICAL HISTORY: Atypical chest pain. COMPARISON STUDY: Chest radiograph January 16, 2022. TECHNIQUE: Following IV administration of 120 mL of Optiray, helical axial images of the chest were obtained utilizing the pulmonary embolus protocol. Maximal intensity projections and sagittal and coronal reformats were viewed on an independent 3D workstation. IV contrast was administered without complication. Automated exposure control was utilized for the study. A dose lowering technique was utilized adhering to the principles of ALARA. CT DOSE: 595.38 mGy.cm FINDINGS: No pulmonary emboli are identified. Moderate cardiomegaly is noted. There is also moderate coronary artery calcification. No pericardial effusion is noted. Ascending aorta is dilated, measuring 4.4 cm in caliber. No pneumothorax or pleural effusion is present. There is a calcified granuloma within the left upper lobe. Mild interlobular septal thickening is present. Subpleural ground glass opacities reflect atelectasis. No consolidation to suggest pneumonia. There is no thoracic lymphadenopathy. IMPRESSION: 1. No pulmonary emboli identified. 2. Moderate cardiomegaly and coronary artery calcification. No pericardial effusion. 3. Dilated ascending aorta, measuring 4.4 cm. 4. Interlobular septal thickening. This favors mild interstitial edema. ACT 112: Negative or not required by law. Electronically signed by: Gene Styles M.D. 01/17/2022 8:51 AM Chest X-Ray 01/18/22 10:00 XR chest 1V portable CLINICAL HISTORY: fever, r/o PNA COMPARISON STUDY: Chest radiograph January 16, 2022. Chest CT January 17, 2022. FINDINGS: Calcified granuloma within the left upper lobe is incidentally noted. There is no pneumothorax or pleural effusion. No consolidation to suggest pneumonia. Dilatation of the ascending aorta is again noted. This is better depicted on chest CT. There is cardiomegaly. There is mild pulmonary edema. IMPRESSION: 1. No consolidation to suggest pneumonia. 2. No change in mild pulmonary edema. 3. Cardiomegaly. ACT 112: Negative or not required by law. Electronically signed by: Gene Styles M.D. 01/18/2022 10:28 AM Hospital Course (1) COVID-19: (2) Hypertensive urgency: (3) Valvular heart disease: Plan 56 year old male with h/o HTN, mod-sev AR, h/o CVA who presented to the ED with chest pain and hypertensive urgency. States he stopped his antihypertensive meds after he lost significant weight. Echo- EF 50-55%, borderline global hypokinesia, grade 1 diastolic dysfunction, mod-sev AR CTA chest- 1. No pulmonary emboli identified. 2. Moderate cardiomegaly and coronary artery calcification. No pericardial effusion. 3. Dilated ascending aorta, measuring 4.4 cm. 4. Interlobular septal thickening. This favors mild interstitial edema. Fever due to COVID 19- Tmax of 38.6 C but now improved. Work up negative except for COVID 19. Does not look sick or septic. CXR clear, UA unremarkable, WBC normal, procal and lactate negative, CRP elevated. Blood clx pending- recommended to follow up with PCP for final clx results. I have prescribed paxlovid at discharge at his request. Hypertensive urgency- due to medication non compliance. SBP 180s on admission, BP currently controlled with resuming losartan, metoprolol. Continue at discharge per cardio Chest pain with mildly elevated trop- currently chest pain free. Trop mildly elevated but already trended down. Doubt NSTEMI, likely demand ischemia from uncontrolled HTN. Echo reviewed. Seen by cardio- recommended OP ischemic work up. Cardio will schedule OP stress testing. Valvular heart disease (mod-sev AR) with severe aortic root enlargement at 5.1 cm and mod-sev ascending aortic enlargement at 4.8 cm- F/u with cardiothoracic surgery as OP for aortic valve replacement and aortic repair H/o CVA 2011- continue ASA, statin He is anxious to go home. He is comfortable and stable for discharge home. Recommended home isolation while he recovers from COVID. Reviewed discharge plan in detail with patient and at bedside. Total Time Total Time Spent Total Time Spent (In Minutes): 50 Discharge Plan Discharge Items Patient Disposition: Home - Self-Care Reason For Visit: CP, TROP ELEV Discharge Diagnosis: Hypertensive urgency, Chest pain, Covid 19 Activity: Resume your previous activity Non-emergency contact: Primary Care Provider and [facility] Call non-emergency contact if: you have any medication questions, your symptoms worsen and your pain is unusual for you Follow-up/Referrals: PCP,NO [Primary Care Provider] - Diet: Heart Healthy Fluids: 1500ml (6 cups) Addtl Attending Provider Instructions: Continue losartan and metoprolol as prescribed Start taking paxlovid for your covid 19 infection Recommend home isolation until you recover Follow up with family doctor regarding the final blood culture results that were drawn here today- they are still incubating Follow up with cardiology for Outpatient stress test Follow up with cardiothoracic surgery for your leaky valve and dilated aorta Pending Studies at Discharge: Yes Studies:: blood culture Stand-Alone Forms: My Needium, Smoking Cessation Medications and DC Order Prescriptions: New metoprolol succinate 25 mg Tablet Extended Release 24 Hr 25 mg PO QAM Qty: 30 0RF losartan 25 mg tablet 25 mg PO DAILY Qty: 30 0RF Paxlovid (EUA) 300 mg (150 mg x 2)-100 mg tablets,dose pack See Rx Instructions .ROUTE .COMPLEX Qty: 30 0RF Rx Instructions: take TWO 150 mg tablets of nirmatrelvir with ONE 100 mg tablet of ritonavir twice daily for 5 days Continued aspirin 81 mg Tablet,Delayed Release (Dr/Ec) 81 mg PO DAILY rosuvastatin 10 mg Tablet 10 mg PO UD Rx Instructions: ordered daily...not taking Discontinued losartan-hydrochlorothiazide 50-12.5 mg Tablet 1 tab PO UD Rx Instructions: ordered daily....pt not taking Discharge Orders: Discharge Order (Routine); Ordered 01/18/22 Ordered By: Scar Rincon Admission Data Admit Date/Time: 01/18/22 11:02 Attending Provider: Scar Rincon Admit Provider: Jeffrey Phillips Primary Care Provider: PCP,NO Other Providers: Jeffrey Phillips ; Gabe Murrieta ; Roly Sanchez ; Nathan Deshpande ; Sixto Arreola ; Stuart Troncoso ; Ellis Wilcox ; Sonya Ugalde ; Olivia Huerta ; Kalli Leon ; Ryan Navarrete Other Interventions: Discharge Summary Assessment (RN) Last Done: 01/18/22 14:53
--- NOTE | 2022-01-19 05:51 | Electrocardiogram Report ---
Test Reason : Blood Pressure : / mmHG Vent. Rate : 093 BPM Atrial Rate : 093 BPM P-R Int : 174 ms QRS Dur : 100 ms QT Int : 400 ms P-R-T Axes : 035 -04 088 degrees QTc Int : 497 ms Normal sinus rhythm Possible Left atrial enlargement Left ventricular hypertrophy with repolarization abnormality Prolonged QT Abnormal ECG When compared with ECG of 17-JAN-2022 05:25, Vent. rate has increased BY 32 BPM T wave inversion now evident in Lateral leads Confirmed by Jensen Thomas ([id number] on 01/19/2022 5:51:19 AM Referred By: REFERRED SELF Confirmed By:Jensen Thomas
[2022-01-19] MEDS ORDERED: ENOXAPARIN INJ 40 MG/0.4 ML SYR SQ SCH (09:00)
== END 2022-01-18 15:30 | disposition home or self-care (01) | DRG 304 ==
LOC: ED 22:10 → 2E 22:10 → SUATTDRO 01-17 00:53 → 2E 01-17 01:41